=== PATIENT | male | born 1940 | race Caucasian/White ===

== ENCOUNTER 2023-09-29 09:02 | Emergency (ER) | payer MEDICARE, OTHER ==
[~2023-09-29] VITALS: Ht 182.9 cm; Wt 96.8 kg
[2023-09-29 09:53] LABS: BASOPHILS % (AUTO) 0.5 % (0-1); EOSINOPHILS # (AUTO) 0.2 X10'3 (0-0.9); EOSINOPHILS % (AUTO) 2.6 % (0-6); HEMATOCRIT 49.8 % (42.0-52.0); HEMOGLOBIN 16.8 g/dl (14.0-17.9); LYMPHOCYTES # (AUTO) 1.7 X10'3 (1.1-4.8); LYMPHOCYTES % (AUTO) 25.6 % (21-51); MEAN CORPUSCULAR HEMOGLOBIN 31.5 PG (27.0-31.0); MEAN CORPUSCULAR HGB CONC 33.6 g/dL (33.0-36.5); MEAN CORPUSCULAR VOLUME 93.5 FL (78-98); MEAN PLATELET VOLUME 9.6 FL (7.4-10.4); MONOCYTES # (AUTO) 0.5 X10'3 (0-0.9); MONOCYTES % (AUTO) 7.3 % (2-12); NEUTROPHILS # (AUTO) 4.2 X10'3 (1.8-7.7); PLATELET COUNT 178 X10'3 (140-440); RED BLOOD COUNT 5.33 X10'6 (4.70-6.10); RED CELL DISTRIBUTION WIDTH 13.1 % (11.5-14.5); WHITE BLOOD COUNT 6.6 X10'3 (4.5-11.0)
[2023-09-29 10:06] LABS: ALANINE AMINOTRANSFERASE 28 U/L (12-78); ALBUMIN 3.8 G/DL (3.4-5.0); ALKALINE PHOSPHATASE 86 IU/L (46-116); ANION GAP 3 (8-16); ASPARTATE AMINO TRANSFERASE 27 U/L (10-37); BILIRUBIN,TOTAL 0.7 MG/DL (0.1-1.0); BLOOD UREA NITROGEN 11 MG/DL (7-18); CALCIUM 9.8 MG/DL (8.5-10.1); CHLORIDE 104 MMOL/L (99-107); CREATININE 1.22 MG/DL (0.60-1.10); GLUCOSE 123 MG/DL (70-104); POTASSIUM 3.6 MMOL/L (3.5-5.1); SODIUM 140 MMOL/L (135-145); TOTAL CARBON DIOXIDE 33.1 MMOL/L (24-32); TOTAL PROTEIN 7.8 G/DL (6.4-8.2); eCRCL 52 ML/MIN; eGFR 57 ML/MIN
[2023-09-29 10:13] LABS: PRO BRAIN NATRIURETIC PEPTIDE 575 PG/ML (0-450)
[2023-09-29] MEDS ORDERED: hydrALAZINE 20mg/ml inj. IV ONE (10:45)
[2023-09-29 11:08] LABS: MAGNESIUM 2.2 MG/DL (1.5-2.4)
[2023-09-29] MEDS ORDERED: HYDR-4069 PO (12:12)
[2023-09-29 13:02] VITALS: BP 158/88; PULSE 56; RESP 15; TEMP 97.7; O2SAT 98
== END 2023-09-29 13:08 | disposition home or self-care (01) ==
LOC: ER 09:03
DX: I16.0 Hypertensive urgency (principal); I10 Essential (primary) hypertension; E07.9 Disorder of thyroid, unspecified
CPT/HCPCS: 36415; 71045; 80053; 83735; 83880; 84484; 85025; 93005; 96374; 99285; J0360

== ENCOUNTER 2023-10-16 23:25 | Emergency (ER) | payer MEDICARE, OTHER ==
[~2023-10-16] VITALS: Ht 182.9 cm; Wt 96.0 kg
[~2023-10-16 23:25] MED LIST: HYDR-4069 PO
[2023-10-16] MEDS ORDERED: hydrALAZINE 20mg/ml inj. IV ONE (23:55)
[2023-10-17 00:21] LABS: BASOPHILS # (AUTO) 0.1 X10'3 (0-0.2); BASOPHILS % (AUTO) 0.9 % (0-1); EOSINOPHILS # (AUTO) 0.3 X10'3 (0-0.9); EOSINOPHILS % (AUTO) 3.7 % (0-6); HEMATOCRIT 47.2 % (42.0-52.0); HEMOGLOBIN 16.1 g/dl (14.0-17.9); LYMPHOCYTES # (AUTO) 2.5 X10'3 (1.1-4.8); LYMPHOCYTES % (AUTO) 34.6 % (21-51); MEAN CORPUSCULAR HEMOGLOBIN 31.6 PG (27.0-31.0); MEAN CORPUSCULAR HGB CONC 34.1 g/dL (33.0-36.5); MEAN CORPUSCULAR VOLUME 92.7 FL (78-98); MEAN PLATELET VOLUME 9.7 FL (7.4-10.4); MONOCYTES # (AUTO) 0.5 X10'3 (0-0.9); MONOCYTES % (AUTO) 7.4 % (2-12); NEUTROPHILS # (AUTO) 3.8 X10'3 (1.8-7.7); NEUTROPHILS % (AUTO) 53.4 % (42-75); PLATELET COUNT 185 X10'3 (140-440); RED BLOOD COUNT 5.09 X10'6 (4.70-6.10); RED CELL DISTRIBUTION WIDTH 13.3 % (11.5-14.5); WHITE BLOOD COUNT 7.2 X10'3 (4.5-11.0)
[2023-10-17 00:48] LABS: ANION GAP 7 (8-16); BLOOD UREA NITROGEN 17 MG/DL (7-18); CALCIUM 9.7 MG/DL (8.5-10.1); CHLORIDE 104 MMOL/L (99-107); CREATININE 1.31 MG/DL (0.60-1.10); GLUCOSE 103 MG/DL (70-104); POTASSIUM 3.7 MMOL/L (3.5-5.1); PRO BRAIN NATRIURETIC PEPTIDE 336 PG/ML (0-450); SODIUM 141 MMOL/L (135-145); TOTAL CARBON DIOXIDE 30.5 MMOL/L (24-32); eCRCL 49 ML/MIN; eGFR 53 ML/MIN
[2023-10-17 00:57] LABS: FREE T4 (FREE THYROXINE) 0.88 NG/DL (0.73-1.40); THYROID STIMULATING HORMONE 11.47 ulU/ml (0.34-4.50)
[2023-10-17] MEDS ORDERED: NEBI20TA6 PO (01:19)
[2023-10-17 02:21] VITALS: BP 157/91; PULSE 71; RESP 14; TEMP 97.6; O2SAT 95
== END 2023-10-17 02:31 | disposition home or self-care (01) ==
LOC: ER 23:26
DX: I16.0 Hypertensive urgency (principal)
CPT/HCPCS: 36415; 71045; 80048; 83880; 84439; 84443; 84484; 85025; 93005; 96374; 99285; J0360